=== PATIENT | female | born 2000 ===

== ENCOUNTER 2025-04-06 10:18 | Outpatient (CLI) | payer OTHER | END 2025-04-06 10:19 | disposition home or self-care (01) | LOC: PRENATAL 10:18 | PROVIDERS: ATTEND Obstetrics & Gynecology Maternal & Fetal Medicine | DX: O44.00 Complete placenta previa NOS or without hemorrhage, unspecified trimester (principal); O10.019 Pre-existing essential hypertension complicating pregnancy, unspecified trimester; O99.280 Endocrine, nutritional and metabolic diseases complicating pregnancy, unspecified trimester; O28.3 Abnormal ultrasonic finding on antenatal screening of mother; Z3A.21 21 weeks gestation of pregnancy ==